=== PATIENT | female | born 1995 | race Asian ===

== ENCOUNTER 2018-01-03 16:38 | Emergency (ER) | payer OTHER ==
--- NOTE | 2018-01-03 17:34 | ED ---
GI/ HPI - HPI Summary HPI Summary: This patient is a 22 year old F presenting to [facility] with a chief complaint of irregular menstrual period for the last 2-3 months. Her LNMP was a week ago but she began bleeding again last night. Patient describes the bleeding as fresh blood but not heavy bleeding, and that it appears as dried blood in the morning. Patient denies any pain, nausea, vomiting, SOB, dizziness, and palpitations. She is not sexually active and has never been . Patient has never had a pelvic exam. She went to [facility] for a checkup 3 months ago, and she went in for a follow-up a few weeks later. Her doctor there said that she would be given pills to control her hormones or referred to [facility] for an US, however she came in today due to the recent bleeding. Patient has a PMHx of irregular menstrual bleeding a few years ago that resolved by itself. - History of Current Complaint Chief Complaint: EDVaginalBleeding Time Seen by Provider: 01/03/18 17:24 Stated Complaint: VAGINAL BLEEDING Hx Obtained From: Patient Onset/Duration: Started Weeks Ago - 3 months ago Pain Intensity: 0 Associated Signs and Symptoms: Positive: Other: - Denies any pain, denies SOB, denies palpitations. Negative: Dizziness, Nausea, Vomiting - Allergy/Home Medications Allergies/Adverse Reactions: Allergies Allergy/AdvReac Type Severity Reaction Status Date / Time No Known Allergies Allergy Verified 01/03/18 16:54 PMH/Surg Hx/FS Hx/Imm Hx Endocrine/Hematology History: Denies: Hx Diabetes History: Reports: Other Problems/Disorders - Irregular menstrual bleeding Infectious Disease History: No Infectious Disease History: Denies: Traveled Outside the [place] in Last 30 Days - Family History Known Family History: Negative: Cardiac Disease, Diabetes - Social History Occupation: Student Alcohol Use: None Substance Use Type: Reports: None Smoking Status (MU): Never Smoked Tobacco Review of Systems Negative: Other - Denies any pain Negative: Palpitations Negative: Shortness Of Breath Negative: Vomiting, Nausea Positive: other - Irregular menstrual bleeding Neurological: Other - Denies dizziness All Other Systems Reviewed And Are Negative: Yes Physical Exam - Summary Physical Exam Summary: VITAL SIGNS: Reviewed. GENERAL: Patient is a well-developed and nourished FEMALE who is lying comfortable in the stretcher. Patient is not in any acute respiratory distress. HEAD AND FACE: No signs of trauma. No ecchymosis, hematomas or skull depressions. No sinus tenderness. EYES: PERRLA, EOMI x 2, No injected conjunctiva, no nystagmus. EARS: Hearing grossly intact. Ear canals and tympanic membranes are within normal limits. MOUTH: Oropharynx within normal limits. NECK: Supple, trachea is midline, no adenopathy, no JVD, no carotid bruit, no c- spine tenderness, neck with full ROM. CHEST: Symmetric, no tenderness at palpation LUNGS: Clear to auscultation bilaterally. No wheezing or crackles. CVS: Regular rate and rhythm, S1 and S2 present, no murmurs or gallops appreciated. ABDOMEN: Soft, non-tender. No signs of distention. No rebound no guarding, and no masses palpated. Bowel sounds are normal. EXTREMITIES: FROM in all major joints, no edema, no cyanosis or clubbing. NEURO: Alert and oriented x 3. No acute neurological deficits. Speech is normal and follows commands. SKIN: Dry and warm Triage Information Reviewed: Yes Vital Signs On Initial Exam: Initial Vitals Temp Pulse Resp BP Pulse Ox 98.0 F 82 14 103/68 99 01/03/18 16:52 01/03/18 16:52 01/03/18 16:52 01/03/18 16:52 01/03/18 16:52 Vital Signs Reviewed: Yes Diagnostics - Vital Signs Vital Signs Temp Pulse Resp BP Pulse Ox 01/03/18 16:52 98.0 F 82 14 103/68 99 - Laboratory Result Diagrams: 01/03/18 17:24 01/03/18 17:24 Lab Statement: Any lab studies that have been ordered have been reviewed, and results considered in the medical decision making process. GIGU Course/Dx - Course Assessment/Plan: This patient is a 22 year old F presenting to [facility] with a chief complaint of irregular menstrual period for the last 2-3 months. Her LNMP was a week ago but she began bleeding again last night. Patient describes the bleeding as fresh blood but not heavy bleeding, and that it appears as dried blood in the morning. Patient denies any pain, nausea, vomiting, SOB, dizziness , and palpitations. She is not sexually active and has never been . Patient has never had a pelvic exam. She went to [facility] for a checkup 3 months ago, and she went in for a follow-up a few weeks later. Her doctor there said that she would be given pills to control her hormones or referred to [facility] for an US, however she came in today due to the recent bleeding. Patient has a PMHx of irregular menstrual bleeding a few years ago that resolved by itself. Vaginal Blood work without any significant abnormalities. H&H is stable. Beta- hCG is negative for . I discussed my physical exam, findings and test results with Dr. Rojas and he recommends for the patient to be referred to his office for further workup and management. The patient is not sexually active therefore she declined a pelvic exam and at this point we think that the patient doesn't need a pelvic ultrasound. Therefore the patient will be discharged home with follow-up with Dr. Kelley. The patient was given instructions to return to the emergency department when she develop heavy vaginal bleeding. The patient understands and agrees. - Diagnoses Provider Diagnoses: Vaginal bleeding - Physician Notifications Discussed Care Of Patient With: Arturo ROBERTSON Time Discussed With Above Provider: 18:04 Instructed by Provider To: Have Pt Call For Appt. - Do not give any medications currently and refer patient to his office. Discharge - Sign-Out/Discharge Documenting (check all that apply): Patient Departure - D/C - Discharge Plan Condition: Stable Disposition: HOME Patient Education Materials: Dysfunctional Uterine Bleeding (ED) Referrals: Arturo Rojas MD [Medical Doctor] - 2 Days Additional Instructions: RETURN TO (URGENT CARE OR THE ED) FOR ANY WORSENING OR NEW SYMPTOMS. FOLLOW UP WITH DR. ROJAS WITHIN 2 DAYS. - Billing Disposition and Condition Condition: STABLE Disposition: Home - Attestation Statements Document Initiated by Kai: Yes Documenting Scribe: Adolfo Yuan Provider For Whom Kai is Documenting (Include Credential): Derek Holman MD Scribe Attestation: Adolfo Mcdowell, scribed for Derek Holman MD on 01/03/18 at 1846. Scribe Documentation Reviewed: Yes Provider Attestation: The documentation as recorded by the Adolfo austin accurately reflects the service I personally performed and the decisions made by me, Derek Holman MD
[2018-01-03 17:41] LABS: ABS Basophils 0 10^3/ul (0-0.2); ABS Eosinophils 0.3 10^3/ul (0-0.6); ABS Lymphocytes 1.3 10^3/ul (1.0-4.8); ABS Monocytes 0.3 10^3/ul (0-0.8); ABS Neutrophils 2.1 10^3/ul (1.5-7.7); ABS Nucleated RBC 0 10^3/ul; Eosinophil % 7.5 % (0-6); Hematocrit 40 % (35-47); Hemoglobin 13.2 g/dl (12.0-16.0); Lymphocyte % 31.7 % (25-47); Mean Corpuscular HGB Conc 33 g/dl (31-36); Mean Corpuscular Hemoglobin 29 pg (27-31); Mean Corpuscular Volume 87 fL (80-97); Mean Platelet Volume 8.7 fL (7.4-10.4); Nucleated Red Blood Cells % 0.1; Platelet Count 205 10^3/ul (150-450); Red Blood Count 4.57 10^6/ul (4.00-5.40); Red Cell Distribution Width 13 % (10.5-15)
[2018-01-03 17:47] LABS: INR 1.1 (0.77-1.02)
[2018-01-03 17:54] LABS: EGFR Non-African American 106.7 (>60)
[2018-01-03 18:34] VITALS: BP 88/55
== END 2018-01-03 18:33 | disposition home or self-care (01) ==
LOC: ED 16:38
DX: N93.9 Abnormal uterine and vaginal bleeding, unspecified (principal); Z32.02 Encounter for pregnancy test, result negative
CPT/HCPCS: 36415; 80053; 84702; 85025; 85610; 99282